=== PATIENT | female | born 1980 | race African-American/Black ===

== ENCOUNTER 2018-12-04 11:55 | Emergency (ER) | payer OTHER ==
[~2018-12-04] VITALS: Ht 170.2 cm; Wt 56.7 kg
[~2018-12-04 11:55] MED LIST: AMOXICILLIN875 MG PO; NAPROSYN500 MG PO; TRAMADOL 50 MG50 MG PO; ZPAK PO
[2018-12-04] MEDS ORDERED: NORFLEX100 MG PO (13:19)
[2018-12-04] MEDS ORDERED: NAPROSYN500 MG PO (13:19)
[2018-12-04 13:45] VITALS: BP 95/69
== END 2018-12-04 13:45 | disposition home or self-care (01) ==
LOC: ER 11:55
DX: S16.1XXA Strain of muscle, fascia and tendon at neck level, initial encounter (principal); S00.83XA Contusion of other part of head, initial encounter; Z88.1 Allergy status to other antibiotic agents; V89.2XXA Person injured in unspecified motor-vehicle accident, traffic, initial encounter; Y92.89 Other specified places as the place of occurrence of the external cause; Y93.89 Activity, other specified; Y99.8 Other external cause status

== ENCOUNTER 2018-12-11 00:06 | Emergency (ER) | payer OTHER ==
[~2018-12-11] VITALS: Ht 170.2 cm; Wt 56.7 kg
[~2018-12-11 00:06] MED LIST changes: +NORFLEX100 MG PO
[2018-12-11 00:10] VITALS: BP 136/99
[2018-12-11] MEDS ORDERED: NORCO 5-325 TA1 EAC1 PO (00:59)
== END 2018-12-11 01:05 | disposition home or self-care (01) ==
LOC: ER 00:06
DX: S46.812A Strain of other muscles, fascia and tendons at shoulder and upper arm level, left arm, initial encounter (principal); F17.220 Nicotine dependence, chewing tobacco, uncomplicated; Z88.1 Allergy status to other antibiotic agents; V49.49XA Driver injured in collision with other motor vehicles in traffic accident, initial encounter; Y93.89 Activity, other specified; Y92.89 Other specified places as the place of occurrence of the external cause; Y99.8 Other external cause status

== ENCOUNTER 2020-06-25 12:27 | Emergency (ER) | payer OTHER ==
[~2020-06-25] VITALS: Ht 170.2 cm; Wt 61.2 kg
[~2020-06-25 12:27] MED LIST changes: +NORCO 5-325 TA1 EAC1 PO
[2020-06-25 12:29] VITALS: BP 152/114
== END 2020-06-25 13:00 | disposition home or self-care (01) ==
LOC: ER 12:27
DX: S61.213A Laceration without foreign body of left middle finger without damage to nail, initial encounter (principal); Z88.1 Allergy status to other antibiotic agents; W26.0XXA Contact with knife, initial encounter; Y93.89 Activity, other specified; Y92.89 Other specified places as the place of occurrence of the external cause; Y99.8 Other external cause status